=== PATIENT | female | born 1940 | race Caucasian/White ===

== ENCOUNTER 2017-04-27 00:25 | Day surgery (SDC) | payer MEDICARE, OTHER ==
[2017-04-27] VITALS (12 sets, daily range): BP systolic 134–163; BP diastolic 67–136; PULSE 60–68; RESP 13–23; O2SAT 95–98
[~2017-04-27] VITALS: Ht 167.6 cm; Wt 103.7 kg
[~2017-04-27 00:25] MED LIST: ACET325T51 PO; ALBU8.5H2 INHALATION; APIX5TAB PO; CETI10CA PO; DETROL LA4 M1 PO; FEXO-15 PO; FEXO180T85 PO; LOVA20TA PO; METO25TA99 PO; OMEP20TA24 PO; PSEU30SY2 PO; TRIA10.8 NS
[2017-04-27 07:33] LABS: BASOPHILS % (AUTO) 0.5 % (0-3); EOSINOPHILS % (AUTO) 4.4 % (0-5); MONOCYTES % (AUTO) 9.9 % (4-12); Mean Corpuscular Hemoglobin 29.8 pg (27.0-35.0); Mean Corpuscular Volume 94.9 fL (81-100); NEUTROPHILS % (AUTO) 62.3 % (40-74); Platelet Count 195 bil/L (150-400)
[2017-04-27 07:43] LABS: INR 0.94 ratio
[2017-04-27] MEDS ORDERED: CETI-343 PO (07:54)
[2017-04-27] MEDS ORDERED: Heparin 10,000 Unit/1,000 mL NS Premix IV ONE (08:20)
[2017-04-27] MEDS ORDERED: fentaNYL-PF 50 mCg/mL 2 mL Inj ONE (08:56)
[2017-04-27] MEDS ORDERED: Heparin 1,000 Unit/mL 10 mL Inj ONE (09:08)
[2017-04-27] MEDS ORDERED: Ondansetron 2 mg/mL 2 mL Inj IVPUSH PRN (10:50)
[2017-04-27] MEDS ORDERED: HYDROcodone-APAP 5-325 mg Tablet PO PRN (10:50)
--- NOTE | 2017-04-27 11:00 | NUR ---
POST PROCEDURE NOTE RETURNED FROM [employer]. SEE FLOW SHEETS
--- NOTE | 2017-04-27 11:30 | PROCED ---
[address] [address] PROCEDURE NOTE PATIENT: LION HUFF : 1940 MR#: [id number] ADMIT: 04/27/2017 JOB ID: [id number] DATE OF SERVICE: 04/27/2017 PREOPERATIVE DIAGNOSIS(ES): Paroxysmal drug-refractory atrial flutter. POSTOPERATIVE DIAGNOSIS(ES): Paroxysmal drug-refractory atrial flutter. PROCEDURES PERFORMED: 1. Comprehensive electrophysiology study with left atrial pacing over the coronary sinus catheter. 2. Three-dimensional electroanatomical mapping using the CARTO 3 system. 3. Atrial flutter ablation (cavotricuspid isthmus ablation; supraventricular tachycardia ablation). 4. Fluoroscopy. SURGEON: Romy Stanton MD, electrophysiology attending. MANAGER FINANCIAL PLANNING: Jane Santillan Megan Boyer. ANESTHESIA: Bolus dosing of Versed and fentanyl were utilized for appropriate level of sedation. INDICATION: The patient is a pleasant 77-year-old woman with preserved LV function, recurrent reverse typical atrial flutter. After discussing the risks and benefits of catheter-based mapping and ablation, she opted to proceed. PROCEDURAL DESCRIPTION: After informed signed consent, the patient was taken to the EP laboratory in a fasting, nonsedated state where she prep and drape in the usual sterile fashion. The right inguinal region was infiltrated with 1% lidocaine. Then, using the modified Seldinger technique, one 8 and two 7-Azeri sheaths were inserted into the right femoral vein. Under fluoroscopic guidance, a deflectable decapolar catheter was advanced to the coronary sinus with most proximal bipoles at the os of the sinus. A 20-pole Livewire catheter was used to encircle the tricuspid annulus. A J-curve irrigated SmartTouch ablation catheter was brought to the field and used to create a three-dimensional electroanatomical mapping of the right atrium, cavotricuspid isthmus and coronary sinus using the CARTO 3 system. The patient was in sinus rhythm at the onset of the case. Pacing was undertaken from the coronary sinus os while monitoring the atrial activation pattern on the Livewire catheter. A linear series of ablations was performed from the ventricular to the IVC aspect of the cavotricuspid isthmus at the 6 o'clock position. Ultimately, medial to lateral block was achieved with a shift in the atrial activation pattern on the Livewire catheter. Lateral to medial was confirmed. A 20-minute waiting period was undertaken during which bidirectional block was confirmed. During the course of this study, we did complete a comprehensive electrophysiology study with right atrial pacing recording, right ventricular pacing recording, His bundle recording and left atrium pacing recording via the coronary sinus catheter. All catheters and sheaths were removed. Manual pressure was held for hemostasis. Patient was transferred to the [facility] for monitoring, bedrest and discharge. COMPLICATIONS: None. ESTIMATED BLOOD LOSS: Negligible. FINDINGS: 1. Baseline rhythm is sinus with an RR interval of 1003 msec, OH 160 msec, QRS 74 msec, QT 358 msec. 2. Intracardiac intervals: AH interval msec, HV 56 msec. 3. Retrograde conduction: No VA conduction was seen at 600 msec. 4. Cavotricuspid isthmus ablation was as described above with bidirectional isthmus block post ablation. Specifically, transisthmus time was 168 msec in medial to lateral direction and 149 msec lateral to medial. IMPRESSION: Successful cavotricuspid isthmus ablation for recurrent atrial flutter. PLAN: 1. Bedrest x4 hours. 2. Continue anticoagulation and beta blockade. 3. Follow up with Reza Rodriguez PA-C in three or four weeks and with Dr. Townsend thereafter. ATTENDING STATEMENT: Eb Stanton MD, was present for and has supervised/performed all aspects of this procedure.
--- NOTE | 2017-04-27 14:53 | NUR ---
PT'S PATRICIA DC'D, RIGHT GROIN REMAINS STABLE. REPORT TO Lety RICH R.N, DISCHARGE INSTRUCTIONS REVIEWED WITH PATIENT.
--- NOTE | 2017-04-27 14:55 | NUR ---
REMIANS IN SINUS RHYTHM.
--- NOTE | 2017-04-27 15:01 | NUR ---
Report to Lety Velez R.N.
== END 2017-04-27 23:59 | disposition home or self-care (01) ==
LOC: SOUO 00:25
PROVIDERS: ATTEND Internal Medicine Cardiovascular Disease
DX: I48.4 Atypical atrial flutter (principal); I47.1 Supraventricular tachycardia; Z79.01 Long term (current) use of anticoagulants; E78.5 Hyperlipidemia, unspecified; Z87.891 Personal history of nicotine dependence; J45.909 Unspecified asthma, uncomplicated; K21.9 Gastro-esophageal reflux disease without esophagitis; E66.9 Obesity, unspecified; Z68.36 Body mass index [BMI] 36.0-36.9, adult
CPT/HCPCS: 36415; 80048; 85025; 85610; 93005; 93613; 93621; 93653; 99152; 99153; C1730; C1731; C1732; J1644; J2250; J3010